=== PATIENT | male | born 1965 | race Caucasian/White ===

== ENCOUNTER 2016-09-26 02:45 | Emergency (ER) | payer SELFPAY ==
[~2016-09-26] VITALS: Ht 175.3 cm; Wt 68.0 kg
[2016-09-26 07:58] VITALS: BP 111/71
[2016-09-26] MEDS ORDERED: cefTRIAXone SODIUM 250 MG VL IM ONE (08:30)
== END 2016-09-26 08:36 | disposition home or self-care (01) ==
LOC: ER 02:58
DX: N34.2 Other urethritis (principal)
CPT/HCPCS: 96372; 99283; J0696